=== PATIENT | female | born 1955 | race African-American/Black ===

== ENCOUNTER → 2016-09-28 | Outpatient (CLI) | payer OTHER ==
[~2016-09-28] VITALS: Ht 162.6 cm; Wt 93.4 kg
[~2016-09-28] MED LIST: HYDROCODON-ACE1 EAC5 PO; LIPITOR 20 MG T20 M1 PO; METFORMIN HCL500 MG PO; NORCO 10-325 T1 EACH PO; TENORMIN50 MG PO; TIZANIDINE HCL4 MG PO; TRAMADOL 50 MG50 MG PO; TRAMADOL HCL50 MG PO; ULTRAM 50MG TAB50 MG PO; XANAX 0.25 MG0.25 MG PO; ZESTORETIC 20-1 EACH PO
--- NOTE | ~2016-09-28 | HPC ---
[facility] [address] [place] [address] PAIN MANAGEMENT CONSULTATION Name: SHERRI HANNON Room #: REG VICKI TimElíasJuan Ramon.#: [id number] Admission: 09/28/16 Attend Phys: Anuel Wesley MD Discharge: Date of : 53 Report #: [id number] THIS REPORT FOR: //name// CC: Anuel Ritchie MD DATE OF SERVICE: 09/28/2016 Followup visit for chronic low back pain, radiculopathy and osteoarthritis. The patient returns to the pain clinic today for medication renewal. We have established an opioid agreement to provide medication for her chronic intractable back pain, bilateral hip pain and radiculopathy into the right leg. She continues to report that with medication, her pain is moderate and actively controlled and she is able to function at home. She scores her pain as a 4/10, cramping and aching, mostly in her low back and hips. Pain is worsened with activities, walking, bending, sitting and standing and improved with repositioning, medication and she also has a TENS unit, which she has used intermittently. REVIEW OF SYSTEMS: Also positive for hypertension, noninsulin-dependent diabetes and a history of depression. SOCIAL HISTORY: The patient denies the use of current alcohol or tobacco. She is disabled and is no longer in the work force. PHYSICAL EXAMINATION: GENERAL: She is a pleasant 61-year-old. NEUROLOGIC: Affect is now outgoing and pleasant, without signs of depression or anxiety. VITAL SIGNS: Her blood pressure is 118/74, heart rate is 69. BMI is 35.3. CHEST: Clear. CARDIAC: Rhythm was regular. ABDOMEN: Soft. BACK: Tender to touch and she has some pain with forward flexion and extension. EXTREMITIES: She walks with antalgic features. She has tenderness bilaterally in the hips with internal and external rotation. IMPRESSION: 1. Osteoarthritis, bilateral hips. 2. Low back pain with spondylosis. PLAN: 1. Continue to encourage activity. She was previously working out at the gym at the [facility] on [employer]. [facility] [address] [place] [address] PAIN MANAGEMENT CONSULTATION Name: SHERRI HANNON Room #: REG VICKI Bolanos#: [id number] Admission: 09/28/16 Attend Phys: Anuel Wesley MD Discharge: Date of : 53 Report #: [id number] 2. Long discussion regarding the opioid crisis and the importance of safeguarding all medications under terms of our agreement. 3. Urine drug screen will be reviewed. We are doing this for all patients. 4. Renewal of medicines. 5. Hydrocodone 10/325 one tablet q. 8 hours as needed for pain and tramadol 50 mg 1 tablet 3 times daily for pain at a lesser degree p.r.n. Medication for 90 days was provided and we plan to see her at regular intervals per her opioid agreement. <ELECTRONICALLY SIGNED> By: Anuel Wesley MD 11/04/16 1130 [id number] Anuel Wesley MD /kriss
[2016-09-28 13:15] VITALS: BP 118/74
== END | disposition home or self-care (01) ==
LOC: PAIN 07:31
DX: M47.896 Other spondylosis, lumbar region (principal); G89.29 Other chronic pain; M16.0 Bilateral primary osteoarthritis of hip; I10 Essential (primary) hypertension; E11.9 Type 2 diabetes mellitus without complications; F32.9 Major depressive disorder, single episode, unspecified; Z87.891 Personal history of nicotine dependence

== ENCOUNTER → 2017-01-04 | Outpatient (CLI) | payer OTHER ==
[~2017-01-04] VITALS: Ht 162.6 cm; Wt 90.7 kg
--- NOTE | ~2017-01-04 | HPC ---
[facility] [place] [address] PAIN MANAGEMENT CONSULTATION Name: SHERRI HANNON Room #: REG VICKI Nancy.#: [id number] Admission: 01/04/17 Attend Phys: Anuel Wesley MD Discharge: Date of : 53 Report #: [id number] THIS REPORT FOR: //name// CC: Anuel Ritchie DATE OF SERVICE: 01/04/2017 Follow up visit for management of opioids related to osteoarthritis and low back pain. I spent 15 minutes to 20 minutes today in clinic consulting with the patient regarding chronic pain, depression, stress and medication. She reports that this is a very difficult time for her. Her sister is dying at the age of 86 from cancer. She is with hospice. The patient sees her every day. Although, she has lost other relatives, the sister was like a mother to her, 25 years to her senior. There is some family dynamic issues as well going on, we talked about stress management techniques outside of the use of medication. Her pain has been a bit worse slightly, I am sure some of this triggered by her stress pain; however, with medication 01/01, she is able to perform all her normal activities with walking, bending, sitting and standing with medication more effectively. PHYSICAL EXAMINATION: GENERAL: Her affect is depressed. VITAL SIGNS: Her blood pressure 122/55, heart rate 58, and respirations 34. EXTREMITIES: She moves from a sitting to standing position, ambulates without significant discomfort. She has tenderness across her low back. Straight leg raising is negative. IMPRESSION: 1. Chronic intractable low back pain. 2. Mild situational depression. RECOMMENDATIONS: 1. Counseling regarding stress management and meditative techniques and prayer. 2. Continue with hydrocodone. Consider the addition of antidepressants such as some SSRI, but she is already on tramadol, which has a mild elevating effect for serotonin. I would for right now that we will continue to that. 3. Continue with activities of daily living and exercises discussed. 4. Safeguard all medications terms of the opioid agreement reviewed and CDC guidelines were once again discussed. [facility] [address] [place] [address] PAIN MANAGEMENT CONSULTATION Name: SHERRI HANNON Room #: REG CLSan Francisco Chinese HospitalElías.#: [id number] Admission: 01/04/17 Attend Phys: Anuel Wesley MD Discharge: Date of : 53 Report #: [id number] Follow up visit planned in 3 months. By: [id number] Anuel Wesley MD /nt
[2017-01-04 10:24] VITALS: BP 122/55
== END ==
LOC: PAIN 07:04
DX: M54.5 Low back pain (principal); M19.90 Unspecified osteoarthritis, unspecified site; F43.21 Adjustment disorder with depressed mood; I10 Essential (primary) hypertension; Z87.891 Personal history of nicotine dependence

== ENCOUNTER → 2017-04-02 | Outpatient (CLI) | payer OTHER ==
[~2017-04-02] VITALS: Ht 162.6 cm; Wt 91.6 kg
[2017-04-02 10:35] VITALS: BP 116/62
== END | disposition home or self-care (01) ==
LOC: PAIN 06:41
DX: M54.16 Radiculopathy, lumbar region (principal); Z87.891 Personal history of nicotine dependence

== ENCOUNTER → 2017-07-09 | Outpatient (CLI) | payer OTHER ==
[~2017-07-09] VITALS: Ht 162.6 cm; Wt 92.6 kg
[~2017-07-09] MED LIST changes: -XANAX 0.25 MG0.25 MG PO; +XANAX 0.5 MG0.5 MG PO
--- NOTE | ~2017-07-09 | HPC ---
[facility] [place] [address] PAIN MANAGEMENT CONSULTATION Name: DAMON DE ANDANESSASHERRI Room #: REG Norman Cruz.#: [id number] Admission: 07/09/17 Attend Phys: Anuel Wesley MD Discharge: Date of : 53 Report #: [id number] THIS REPORT FOR: //name// CC: Anuel Ritchie DATE OF SERVICE: 07/09/2017 HISTORY OF PRESENT ILLNESS: Followup visit for management of intractable chronic low back pain with radiculopathy. I am seeing the patient in the pain clinic today and once again, she is dealing with a loss of a relative. This poor woman has lost her sister and her brother this year. She also lost a child over a year ago, so she has been grieving, it seems like the entire time that I have known her. She has ongoing chronic pain, which has rated as a 5/10 at low back, both hips, right leg; it is worse with bending, standing and walking. She is grateful for the pain relief which she gets and she is able to do much more activity day-to-day with the medicine. Without it, she does not feel that she would be able to be nearly as functional. She denies any significant side effects and is careful by safeguarding her medication. CURRENT MEDICINES: Tramadol 50 mg, she is allowed 3 per day. I also gave her hydrocodone because it has a different effect and she has allowed to take 3-4 of those a day and I provided her with 100 tablets per month. Most days, she takes 3. On really bad days, she will take a 4. She also takes metformin, atenolol, lisinopril, atorvastatin, tizanidine, occasional alprazolam during the period of time when she was attending her brother who from pancreatic cancer. She is not taking it now. ALLERGIES: None. She is able to ambulate well without any difficulty other than fall risk. She is taking her opioids under terms of an opioid agreement. We reviewed her agreement. She will be seen every 3 months. Urine drug screens and buccal drug screens have been performed. Prior to initiating opioid therapy in our clinic, an opioid risk tool was performed. She avoids use of any excessive alcohol or other drugs. PHYSICAL EXAMINATION: GENERAL: She is pleasant, soft spoken. VITAL SIGNS: Blood pressure 133/61, heart rate 60. Her BMI is 35. Counseling was given regarding dietary and exercise recommendations for weight loss. [address] [address] PAIN MANAGEMENT CONSULTATION Name: SHERRI HANNON Room #: REG VICKI Luis Miguel#: [id number] Admission: 07/09/17 Attend Phys: Anuel Wesley MD Discharge: Date of : 53 Report #: [id number] MUSCULOSKELETAL: The patient was able to independently move from sitting to standing position. There is a mild antalgic feature to her gait. She has tenderness across the low back and positive straight leg raising. IMPRESSION: 1. Chronic intractable low back pain with radiculopathy. 2. Xnz-tybxxyr-qoukoeqjl diabetes. 3. Hypertension. 4. Situational depression following issues of family loss. 5. Management of high risk medications under terms of an opioid agreement. PLAN: The patient will be followed up in 3 months per terms of our opioid agreement. I reviewed the issues associated with our opioid agreement. By: [id number] Anuel Wesley MD /nt
[2017-07-09 10:27] VITALS: BP 133/61
== END ==
LOC: PAIN 07:07
DX: M54.16 Radiculopathy, lumbar region (principal); I10 Essential (primary) hypertension; E11.9 Type 2 diabetes mellitus without complications; Z79.4 Long term (current) use of insulin

== ENCOUNTER → 2017-10-12 | Outpatient (CLI) | payer OTHER ==
[~2017-10-12] VITALS: Ht 162.6 cm; Wt 93.9 kg
--- NOTE | ~2017-10-12 | HPC ---
[facility] [address] [place] [address] PAIN MANAGEMENT CONSULTATION Name: SHERRI HANNON Room #: REG [facility]ENT[facility].#: [id number] Admission: 10/12/17 Attend Phys: Ankur Long DO Discharge: Date of : 53 Report #: [id number] THIS REPORT FOR: //name// CC: Nina Long HISTORY OF PRESENT ILLNESS: The patient is a 62-year-old female, prior seen in the pain clinic typically by Dr. Anuel Wesley and treated for axial back pain, lumbar radiculopathy, has component of non-insulin dependent diabetes and complicated grief following of family members in 2016 including sister and a brother and having lost a child the year prior. She returns to pain clinic today. She has been stable on her baseline medication. She notes chronic low back, hip and right leg pain since 2006, she rates 8 on VAS. To her credit, she is doing water aerobics about 5 times a week. She notes current medications are enabling activities of daily living. We reviewed the fact that opiate medications are being used to provide analgesia adequate to support activities of daily living, not attempting to achieve a specific pain score on the 0-10 Visual Analog Scale. The current opiate medications are providing sufficient analgesia to allow the patient to participate in activities of daily living. The patient is not exhibiting any aberrant behavior suggestive of drug diversion. The patient is not having any adverse reactions to medications. The patient is not suffering from daytime somnolence or mental acuity changes. The patient is managing opiate-induced constipation with appropriate jhow-dhx-bwdalwa agents and dietary considerations. The patient was counseled on concern for caution with operating a motor vehicle while using opiate medications. A physical exam was performed and the patient's functional status was evaluated. All patients with back pain were advised against the bed rest greater than 4 days and were advised to return to normal activities. Pain score assessment was noted and the treatment plan was reviewed with the patient. All current medications, both prescribed and OTC were reviewed and reconciled on the electronic medical record. Tobacco screening was accomplished and smoking cessation was advised when indicated. BMI was noted and diet/exercise modification was recommended for all patients following outside normal parameters. I reviewed with the patient today their responsibilities to safeguard prescription medications, reviewed their responsibility to utilize medications only as prescribed by the physician. They are to seek and receive pain medications only from 1 physician group ( [facility]). They are to use 1 pharmacy and keep the clinic informed if they change pharmacies. Their responsibilities include making followup visits in a timely fashion and to avoid abrupt discontinuation of medication usage. Their responsibilities further include bringing their medications (bottles from the pharmacy with [address] [address] PAIN MANAGEMENT CONSULTATION Name: SHERRI HANNON Room #: REG VICKI Bolanos#: [id number] Admission: 10/12/17 Attend Phys: Ankur Long DO Discharge: Date of : 53 Report #: [id number] pills) to the visit for possible confirmation of pill counts and the patient understands it is their responsibility to submit to random drug screens to ensure both that the medications prescribed are present, and that no other controlled substances are present. All prescriptions provided today were generated electronically. PHYSICAL EXAMINATION: Shows a 62-year-old female appearing somewhat younger than stated age. BMI is 35.5 kilograms per meter squared. Vital signs are stable. Rises from the chair using armrest. Diffuse tenderness across the low back. Does have tenderness in bilateral SI joints. TERRY test is equivocal. Lower extremity strength is symmetric. Last random drug screen on 01/04/2017 was positive for prescribed medications. ASSESSMENT: 1. Symptomatic lumbar radiculopathy. 2. Axial back pain. 3. History of complicated grief. 4. Non-insulin dependent diabetes. PLAN: Stable on baseline medication including hydrocodone 10/325 one tablet 3-4 times a day, limit 100 tablets for 30 days and tramadol 50 mg up to t.i.d. for minor pain. I have taken the liberty of writing for both medications, quantity sufficient for 3 months. Follow up with Dr. Wesley at that time, earlier if needed. <ELECTRONICALLY SIGNED> By: Ankur Long DO 10/15/17 0816 [id number] [id number] Ankur Long DO /nt
[2017-10-12 10:52] VITALS: BP 130/75
== END ==
LOC: PAIN 06:51
DX: M54.16 Radiculopathy, lumbar region (principal); M54.5 Low back pain; E11.9 Type 2 diabetes mellitus without complications

== ENCOUNTER → 2018-01-10 | Outpatient (CLI) | payer OTHER ==
[~2018-01-10] VITALS: Ht 162.6 cm; Wt 95.3 kg
--- NOTE | ~2018-01-10 | HPC ---
[facility] [address] [place] [address] PAIN MANAGEMENT CONSULTATION Name: SHERRI HANNON Room #: REG VICKI Luis Miguel#: [id number] Admission: 01/10/18 Attend Phys: Anuel Wesley MD Discharge: Date of : 53 Report #: [id number] THIS REPORT FOR: //name// CC: Anuel Hong DATE OF SERVICE: 01/10/2018 Followup visit for management of chronic low back pain with radiculopathy. The patient returns to pain clinic today in followup. She has been seen at 3-month intervals, last seen by my partner, Dr. Long in September. She is receiving medication under terms of written opioid agreement. She uses a combination of hydrocodone and tramadol to get through her day. She is doing reasonably well. She does score her pain high at an 8/10, but her functional level is pretty good. She is able to perform multiple daily activities of living. She has in the past been doing water exercises as noted in Dr. Long's record. She has been doing that less frequently. We have performed urine drug screens and most recent one on 01/04/2017 appropriate for medications ordered. Periodic random drug screens will be performed or if we suspect any unusual behavior with early refills or other red flag behaviors. We have had none. She has scoring 32/70 on functional assessment tool. Her risk assessment tool shows her at low risk at 3. She has an opioid agreement signed on 01/05/2016. She is not a fall risk nor has she fallen. PHYSICAL EXAMINATION: Blood pressure is 126/71, heart rate 68, respirations 16. BMI is 36. She is able to ambulate without too much difficulty. She has diffuse tenderness across her low back. There is tenderness bilaterally in the sacroiliac joints. She has tenderness, more so today in the left hip overlying the greater trochanter consistent with bursitis. She has mild pain with internal and external rotation. Pain is worsened by prolonged walking. IMPRESSION: 1. Chronic low back pain with radiculopathy. 2. Spondylosis. 3. Trochanteric bursitis presents today on exam, left hip. 4. Non-insulin dependent diabetes. 5. Management of high risk medications under terms of an opioid agreement. I spent 20-25 minutes today with the patient, which was spent in assessment and evaluation and education. We reviewed her opioid use and her MME currently calculated at 30 per day maximum. She uses tram[place] [address] PAIN MANAGEMENT CONSULTATION Name: SHERRI HANNON Room #: REG CLNorman Bolanos#: [id number] Admission: 01/10/18 Attend Phys: Anuel Wesley MD Discharge: Date of : 53 Report #: [id number] hydrocodone. She does not have significant side effects. PLAN: I renewed her hydrocodone 10 at a total of 100 tablets per month. On a bad day, I have allowed her to take an extra tablet. She can use tramadol as well 1 tablet 3 times daily. A followup visit is scheduled for her in the pain clinic in 3 months. By: [id number] Anuel Wesley MD /nt
[2018-01-10 10:08] VITALS: BP 126/71
== END ==
LOC: PAIN 07:00
DX: M47.26 Other spondylosis with radiculopathy, lumbar region (principal); M70.62 Trochanteric bursitis, left hip; E11.9 Type 2 diabetes mellitus without complications; F11.90 Opioid use, unspecified, uncomplicated; Y93.89 Activity, other specified

== ENCOUNTER → 2018-04-08 | Outpatient (CLI) | payer OTHER ==
[~2018-04-08] VITALS: Ht 162.6 cm; Wt 93.8 kg
--- NOTE | ~2018-04-08 | HPC ---
[facility] [place] [address] PAIN MANAGEMENT CONSULTATION Name: SHERRI HANNON Room #: REG NAIMANorman Bolanos#: [id number] Admission: 04/08/18 Attend Phys: Anuel Wesley MD Discharge: Date of : 53 Report #: [id number] THIS REPORT FOR: //name// CC: Anuel Hong MD DATE OF SERVICE: 04/08/2018 Followup visit for chronic low back pain with radiculopathy. The patient returns to the pain clinic today for followup on the management of medication for chronic pain. She has lumbar spondylosis. X-rays have shown that she has a slight convexity in her lumbar spine with degenerative changes noted with the intervertebral disks. She also has anterior osteophytes and disk space narrowing. The degenerative changes are fairly typical; however, her back pain at times can be quite severe and at times incapacitating. We have been able to help manage that pain effectively with modest doses of opioid medication taken under the terms of our written agreement. She has been a patient of our practice now dating back to 2015. Today, she reports without medication pain intensity is as high as an 8. This affects her ability to take care of her great grandchildren. She is 62 and has 8 of them! 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 Without medication, it is much more difficult for her to do this. We have talked about using the medications at the end of a long day and we also talked about using it in anticipation of events. If, for example, she is taking her children to the zoo, she might want to take a pain medication in advance. We have talked about using it carefully and matching her pain to her medicine, using the lowest effective dose. She is provided with 100 hydrocodone tablets per month. On a bad day, she may take up to 4; on a good day, two, but 100 seems to be the lowest level at this point in time that we have been able to manage. That equates out to about an MME of 33. This puts her in the lower category of the CDC guideline. Most of her pain is across her low back. She does on occasion have some radiating leg pain and we have treated at times for radiculopathy. I have not given her an epidural injection. We have talked about that as a possibility as a symptom management tool as well. Remaining active is important of course and with those great grandchildren, I think she is getting plenty of weightbearing activities. PQRS shows that her BMI is 35.5. We discussed diet management and weight loss. [address] [address] PAIN MANAGEMENT CONSULTATION Name: DAMON DE ANDAPKINSKHUSHBUSHERRI Room #: REG VICKI Bolanos#: [id number] Admission: 04/08/18 Attend Phys: Anuel Wesley MD Discharge: Date of : 53 Report #: [id number] She is not a fall risk and has not fallen. She is hypertensive and under treatment by her primary physician, Dr. Hong, who has also started Lipitor. She is on an opioid agreement, has completed a functional assessment tool and all risks tool and is considered to be a low risk. She is a former smoker. Denies use of alcohol. Drug testing was performed in 2017 and we will repeat that at her next visit. PHYSICAL EXAMINATION: Today, she is pleasant, alert and oriented. She shows no signs of depression, anxiety or overmedication. Her blood pressure is 123/68, heart rate 70. BMI is 35.5. She has no difficulty moving from a sitting to standing position and ambulates without difficulty, although she complains that her pain increases to an 8/10 during her walking. She has some pain with forward flexion and extension, with a minimal radiating pain today. IMPRESSION: 1. Chronic low back pain with radiculopathy. 2. Spondylosis. 3. Non-insulin dependent diabetes. 4. Management of high-risk medications under terms of an opioid agreement. PLAN: I have renewed her hydrocodone 10/325 at 100 tablets per month, tramadol 50 mg 3 times a day. Importance of safeguarding medication, particularly around small children was reviewed today. By: [id number] Anuel Wesley MD /nt
[2018-04-08 10:44] VITALS: BP 123/68
== END ==
LOC: PAIN 08:36
DX: M47.26 Other spondylosis with radiculopathy, lumbar region (principal); E11.9 Type 2 diabetes mellitus without complications; G89.29 Other chronic pain; Z79.891 Long term (current) use of opiate analgesic

== ENCOUNTER → 2018-07-11 | Outpatient (CLI) | payer OTHER ==
[~2018-07-11] VITALS: Ht 162.6 cm; Wt 94.4 kg
--- NOTE | ~2018-07-11 | HPC ---
[facility] [place] [address] PAIN MANAGEMENT CONSULTATION Name: SHERRI HANNON Room #: REG NAIMANorman Bolanos#: [id number] Admission: 07/11/18 Attend Phys: Anuel Wesley MD Discharge: Date of : 53 Report #: [id number] THIS REPORT FOR: //name// CC: Anuel Hong MD DATE OF SERVICE: 07/11/2018 REASON FOR VISIT: Followup visit for management of chronic intractable pain. HISTORY OF PRESENT ILLNESS: The patient presents back to the pain clinic today for renewal of medication. She is on 45 MME if we include tramadol at 15 MME per day. She takes hydrocodone 10/325 four times daily. She reports that with medication she has significant improvement in her low back. She has chronic low back pain with radiculopathy. She has not responded favorably to injections. Her pain is primarily in the right leg radiating in the L5-S1 distribution. She is living alone. In 2017, she lost a sister, a brother, and a child. She continues to grieve, although we did not discuss any of that today. She has become socially isolated. We talked about opportunities for her perhaps to reach out to find other in buddhist or through volunteer work. She has a number of great grandchildren and can babysit. She has reported that in the past, but did not discuss it today. I talked about using the medication carefully under terms of our agreement. She must carefully safeguard all medication at all times. I have checked on the [facility] PDMP and there have been no other providers. She follows with Dr. Nina Ritchie. She reports to us today that her pain is 8/10. Pain is mostly in the low back. Her blood pressure is 123/68, heart rate 70. Her BMI is 35.5. We talked about wellness behaviors. She does not smoke nor does she drink alcohol. She scores 3 on the opioid risk tool and is at low risk for addiction. She has signed an opioid agreement. Her functional assessment tool is 35/70. She denies any history of osteoarthritis or complaints in joins at this time. PHYSICAL EXAMINATION: She is a pleasant. It appears there may be some underlying situational depression with the loss of her family members. Her blood pressure and vital signs are as noted before. She moves from sitting to standing position, walks with mild antalgic features. She has some tenderness across the low back and some straight leg raising pain on the right. IMPRESSION: 1. Low back pain with radiculopathy on the right. [address] [address] PAIN MANAGEMENT CONSULTATION Name: DAMON SHERRI SY Room #: REG VICKI Cruz.#: [id number] Admission: 07/11/18 Attend Phys: Anuel Wesley MD Discharge: Date of : 53 Report #: [id number] 2. Management of high risk medications under 50 morphine milligram equivalents under terms of written opioid agreement. 3. Situational depression and social isolation. PLAN: Follow up in 3 months. She was referred to programs also that are available for free within [facility]. By: [id number] Anuel Wesley MD /nt
[2018-07-11 14:43] VITALS: BP 125/64
== END ==
LOC: PAIN 07:13
DX: M54.16 Radiculopathy, lumbar region (principal); F43.21 Adjustment disorder with depressed mood; Z79.899 Other long term (current) drug therapy; Z79.891 Long term (current) use of opiate analgesic

== ENCOUNTER → 2018-10-10 | Outpatient (CLI) | payer OTHER ==
[~2018-10-10] VITALS: Ht 162.6 cm; Wt 92.5 kg
--- NOTE | ~2018-10-10 | HPC ---
[facility] [place] [address] PAIN MANAGEMENT CONSULTATION Name: DAMON DE ANDANESSASHERRI Room #: REG VICKI Bolanos#: [id number] Admission: 10/10/18 Attend Phys: Anuel Wesley MD Discharge: Date of : 53 Report #: [id number] THIS REPORT FOR: //name// CC: Anuel Hong DATE OF SERVICE: 10/10/2018 Followup visit for chronic low back pain, bilateral lower extremity pain with radiculopathy. The patient returns to pain clinic today for medication renewal. I have her taking alternately either tramadol or hydrocodone for her ongoing severe back pain. Her use is modest. The hydrocodone is not taken more often than every 8 hours and the maximum number of tablets in a day is 3. Her MME is 30. She has tramadol, which she uses alternately and medication typically last a bit longer than 3 months for her. She is here exactly at the 3-month interval today. She says that with medication, her activities of daily living are much improved. She is able to stand, walk, bend much more effectively with less discomfort. It seems to help her move more, which is the bedoya. It helps also with anxiety. She has some hypertension and pain seems to exacerbate her hypertension as well. Other comorbidities include non-insulin dependent diabetes and a history of depression. She seems fairly stable recently and denies significant depression at this time. All medications reviewed and reconciled. She does have alprazolam on her list of medications. The alprazolam is taken intermittently for anxiety. She lost a son a few years back. He was murdered and she continues to have recurring symptoms of depression and anxiety for which the alprazolam provides substantial benefit. We have discussed the opioid benzodiazepine interaction. I did let her know that the majority of overdose tests are associated with high doses of both medications. She should be careful about her use and has shown good tolerance to these medications without complication. She was counseled to discontinue tobacco use and has done so. She no longer smokes. She does, however, use alcohol socially. She was cautioned about the interaction of the pain medications and alcohol. PHYSICAL EXAMINATION: She is a noemy 63-year-old pleasant, alert and oriented with no signs of depression or anxiety today. Her blood pressure 141/80, heart rate 62. Her BMI is 35. She has some pain across her low back, mild straight leg raising bilaterally. Sensation is following an L5 distribution. IMPRESSION: Chronic low back pain with radiculopathy. I have offered her injections, but she had a bad experience with an injection in the past and does [facility] [address] [place] [address] PAIN MANAGEMENT CONSULTATION Name: SHERRI HANNON Room #: REG VICKI Bolanos#: [id number] Admission: 10/10/18 Attend Phys: Anuel Wesley MD Discharge: Date of : 53 Report #: [id number] not really want another injection. I have reviewed her x-rays and she has disk space narrowing at L3-L4 and L4-L5. I do not have a current MRI. PLAN: I am willing to provide her medications under terms of written agreement, which she will continue to follow carefully keeping her medications locked and away from others. I will see her at 3-month intervals as long as there are no unusual behaviors. I have checked for any prescribing abnormalities and there are none on the prescription drug monitoring program from [facility]. By: [id number] Anuel Wesley MD /nt
[2018-10-10 11:08] VITALS: BP 141/80
--- NOTE | 2018-10-10 11:29 | NUR ---
Pain Clinic Assessment: 1. History of Osteoarthritis: fingers back History of Rheumatoid Arthritis: Not Applicable 2. Height: 5 ft. 4 in. 162.6 cm. Weight: 204.0 lb. oz. 92.534 kg. Patient's BMI: 35.0 3. Vital Signs: BP: 141/80 Pulse: 62 Resp: 16 Temp: 02 Sat: 100 ECG Mon: 4. Pain Intensity: 5-6 5. Fall Risk: Dizziness: N Needs help standing or walking: N Fallen in the last 3 months: N Fall risk comments: 6. Patient on Blood Thinner: None 7. History of Hypertension: Y 8. Opioid Therapy greater than 6 weeks: Y Opiate Contract Signed: 01/05/16 9. Risk Assessment Tool Provided: LOW RISK 3 10. Functional Assessment Tool: 11. Recreational Drug Use: Past greater than 3 mos Drug Type: Tobacco Use: Former Smoker Tobacco Type: Cigarettes Amount or Packs/day: 1/2/ppd How Many Years: 30 Alcohol Use: Yes Frequency: Weekly Quant: 6/week
== END ==
LOC: PAIN 06:58
DX: M48.061 Spinal stenosis, lumbar region without neurogenic claudication (principal); M54.5 Low back pain; G89.29 Other chronic pain

== ENCOUNTER → 2019-01-09 | Outpatient (CLI) | payer OTHER ==
[~2019-01-09] VITALS: Ht 162.6 cm; Wt 91.4 kg
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
[2019-01-09 10:22] VITALS: BP 125/75
--- NOTE | 2019-01-09 10:45 | NUR ---
ALERT - Dane Score <= 18: Add Problem PRESSURE ULCER RISK to Patient's Care Plan
--- NOTE | 2019-01-09 10:45 | NUR ---
Pain Clinic Assessment: 1. History of Osteoarthritis: fingers back History of Rheumatoid Arthritis: Not Applicable 2. Height: 5 ft. 4 in. 162.6 cm. Weight: 201.4 lb. oz. 91.355 kg. Patient's BMI: 34.6 3. Vital Signs: BP: 125/75 Pulse: 64 Resp: 16 Temp: 02 Sat: 100 ECG Mon: 4. Pain Intensity: 4-5 5. Fall Risk: Dizziness: N Needs help standing or walking: N Fallen in the last 3 months: N Fall risk comments: 6. Patient on Blood Thinner: None 7. History of Hypertension: Y 8. Opioid Therapy greater than 6 weeks: Y Opiate Contract Signed: 01/05/16 9. Risk Assessment Tool Provided: LOW RISK 3 10. Functional Assessment Tool: 11. Recreational Drug Use: Past greater than 3 mos Drug Type: Tobacco Use: Former Smoker Tobacco Type: Amount or Packs/day: How Many Years: Alcohol Use: Yes Frequency: Quant:
== END ==
LOC: PAIN 06:47
DX: M54.16 Radiculopathy, lumbar region (principal); M19.90 Unspecified osteoarthritis, unspecified site; Z79.891 Long term (current) use of opiate analgesic; Z79.899 Other long term (current) drug therapy

== ENCOUNTER → 2019-04-10 | Outpatient (CLI) | payer OTHER ==
[~2019-04-10] VITALS: Ht 162.6 cm; Wt 91.1 kg
[2019-04-10 10:47] VITALS: BP 109/62
--- NOTE | 2019-04-10 11:09 | NUR ---
Pain Clinic Assessment: 1. History of Osteoarthritis: fingers back History of Rheumatoid Arthritis: Not Applicable 2. Height: 5 ft. 4 in. 162.6 cm. Weight: 200.8 lb. oz. 91.082 kg. Patient's BMI: 34.5 3. Vital Signs: BP: 109/62 Pulse: 62 Resp: 14 Temp: 02 Sat: 100 ECG Mon: 4. Pain Intensity: 5 5. Fall Risk: Dizziness: N Needs help standing or walking: N Fallen in the last 3 months: N Fall risk comments: 6. Patient on Blood Thinner: None 7. History of Hypertension: Y 8. Opioid Therapy greater than 6 weeks: Y Opiate Contract Signed: 01/05/16 9. Risk Assessment Tool Provided: LOW RISK 3 10. Functional Assessment Tool: 11. Recreational Drug Use: Past greater than 3 mos Drug Type: Tobacco Use: Former Smoker Tobacco Type: Amount or Packs/day: How Many Years: Alcohol Use: Yes Frequency: Quant:
--- NOTE | 2019-04-11 08:08 | HPC ---
[facility] [address] [place] [address] PAIN MANAGEMENT CONSULTATION Name: DAMON DE ANDANESSASHERRI Room #: REG [facility] M.R.#: [id number] Admission: 04/10/19 ������������������ Attend Phys: Karla Pérez Discharge: ������������������ Date of : 53 Report #: [id number] THIS REPORT FOR: //name// CC: Karla Pérez Nina Tenishatyrel DATE OF SERVICE: 04/10/2019 CHIEF COMPLAINT: Chronic intractable pain with low back and bilateral lower extremity pain with radiculopathy. HISTORY OF PRESENT ILLNESS: This is a very pleasant 63-year-old female who returns to the pain clinic today for a refill of her medications that she uses to help treat her ongoing low back pain and lumbar radiculopathy. She tells me that her pain score is a 5/10 today. This was a very average pain score for her. She continues to work out on a daily basis. She knows that is very beneficial, it does help her feel better, especially water therapy, though it does cause increased pain while she is working out. Her pain is aching, sharp, shooting pain that is located in her lumbar back and both hips and right leg. The medication and repositioning are very helpful. She denies any problems with constipation presently. ALLERGIES: No known drug allergies. CURRENT LIST OF MEDICATIONS: Tramadol 50 mg every 8 hours p.r.n., hydrocodone 10/325 two to three times a day, atorvastatin 20 mg daily, Xanax 0.5 mg p.r.n., tizanidine 4 mg p.r.n., lisinopril, atenolol and Glucophage. PQRS: 1. She has osteoarthritis changes in her hands and back. Denies any rheumatoid arthritis. 2. Height is 5 feet 4 inches, weight is 200, BMI is 34. 3. VITAL SIGNS: Blood pressure 109/62, pulse is 62, respirations 14, oxygen sat is 100. 4. Pain score is 5/10. 5. Denies dizziness. She does not need help walking or standing and has not fallen in the last 3 months. 6. The patient is not on any blood thinners, but does take medicine for hypertension. 7. Opioid therapy is greater than 6 weeks; therefore, an opiate signed contract is on the chart. Her risk assessment tool is low. Functional assessment is 40/70. 8. Recreational drug use in the past. She is a former smoker and occasionally drinks alcohol. PHYSICAL EXAMINATION: [facility] [address] [place] [address] PAIN MANAGEMENT CONSULTATION Name: SHERRI HANNON [id number] Admission: 04/10/19 ������������������ Attend Phys: Karla Pérez Discharge: ������������������ Date of : 53 Report #: [id number] GENERAL: This is a very pleasant 63-year-old female who appears her stated age, placing her current pain score today at 5/10. HEENT: Normocephalic, atraumatic. Extraocular eye muscles are intact. Mucous membranes are moist. MUSCULOSKELETAL: She can move from sitting to standing without difficulty. She has a mild antalgic gait. She has tenderness across her lumbar spine with pain with forward flexion and extension. Straight leg raising reproduces some radicular symptoms bilaterally. Her lower extremity strength judged to be 5/5 and is symmetrical in tone and strength. IMPRESSION: 1. Chronic low back pain with radiculopathy. 2. Chronic use of medications under terms of written opioid agreement. 3. Osteoarthritis. We reviewed the fact that opiate medications are being used to provide analgesia adequate to support activities of daily living, not attempting to achieve a specific pain score on the 0-10 Visual Analog Scale. The current opiate medications are providing sufficient analgesia to allow the patient to participate in activities of daily living. The patient is not exhibiting any aberrant behavior suggestive of drug diversion. The patient is not having any adverse reactions to medications. The patient is not suffering from daytime somnolence or mental acuity changes. The patient is managing opiate-induced constipation with appropriate tsdm-dgt-hqlomsf agents and dietary considerations. The patient was counseled on concern for caution with operating a motor vehicle while using opiate medications. A physical exam was performed and the patient's functional status was evaluated. All patients with back pain were advised against the bed rest greater than 4 days and were advised to return to normal activities. Pain score assessment was noted and the treatment plan was reviewed with the patient. All current medications, both prescribed and OTC were reviewed and reconciled on the electronic medical record. Tobacco screening was accomplished and smoking cessation was advised when indicated. BMI was noted and diet/exercise modification was recommended for all patients following outside normal parameters. I reviewed with the patient today their responsibilities to safeguard prescription medications, reviewed their responsibility to utilize medications only as prescribed by the physician. They are to seek and receive pain medications only from 1 physician group ([facility]). They are to use 1 pharmacy and keep the clinic informed if they change pharmacies. Their responsibilities include making followup visits in a timely fashion and to avoid abrupt discontinuation of medication usage. Their responsibilities further include bringing their medications (bottles from the pharmacy with residual pills) to the visit for possible confirmation of pill counts and the patient [address] [address] PAIN MANAGEMENT CONSULTATION Name: SHERRI HANNON Room #: [facility] [id number] Admission: 04/10/19 ������������������ Attend Phys: Karla Pérez Discharge: ������������������ Date of : 53 Report #: [id number] understands it is their responsibility to submit to random drug screens to ensure both that the medications prescribed are present, and that no other controlled substances are present. All prescriptions provided today were generated electronically. PLAN: 1. We discussed treatment options with the patient today. The patient finds her pain medications very helpful and is very active with these current medications. Scripts given for hydrocodone 10/325, #100, for today, for an 8-week release and tramadol 50 mg #90 with 2 additional ref[address]. [address] the patient at 35 morphine milligram equivalents according to the CDC guidelines. 2. We did talk about random drug screens. We will check the patient in the future for this and the opioid use and misuse in the general population and the importance of safeguarding her medications at all times. 3. We did briefly also talk about medical marijuana that is becoming legal in the state of [place] as well as CBD oil options. The patient was more interested in learning more about it. She is not interested in trying it though. 4. The patient did see Dr. Anuel Wesley who collaborated care today and saw the patient as well. ��������������������������������������������� <ELECTRONICALLY SIGNED> ���������������������������������������� By: Karla Pérez ��������������������������������������������� 04/11/19 0808 [id number] Karla Pérez /kriss
== END ==
LOC: PAIN 10:16
DX: M54.16 Radiculopathy, lumbar region (principal); M19.90 Unspecified osteoarthritis, unspecified site; Z79.891 Long term (current) use of opiate analgesic

== ENCOUNTER → 2019-07-07 | Outpatient (CLI) | payer OTHER ==
[~2019-07-07] VITALS: Ht 162.6 cm; Wt 90.7 kg
[2019-07-07 09:58] VITALS: BP 113/72
--- NOTE | 2019-07-07 10:12 | NUR ---
Pain Clinic Assessment: 1. History of Osteoarthritis: fingers back History of Rheumatoid Arthritis: Not Applicable 2. Height: 5 ft. 4 in. 162.6 cm. Weight: 200.0 lb. oz. 90.720 kg. Patient's BMI: 34.3 3. Vital Signs: BP: 113/72 Pulse: 62 Resp: 16 Temp: 02 Sat: 98 ECG Mon: 4. Pain Intensity: 4-NOW, 6-7-DAILY AVG 5. Fall Risk: Dizziness: N Needs help standing or walking: N Fallen in the last 3 months: N Fall risk comments: 6. Patient on Blood Thinner: None 7. History of Hypertension: Y 8. Opioid Therapy greater than 6 weeks: Y Opiate Contract Signed: 01/05/16 9. Risk Assessment Tool Provided: LOW RISK 3 10. Functional Assessment Tool: 11. Recreational Drug Use: Never Drug Type: Tobacco Use: Former Smoker Tobacco Type: Amount or Packs/day: How Many Years: Alcohol Use: Yes Frequency: Quant:
--- NOTE | 2019-07-08 13:30 | HPC ---
[facility] [place] [address] PAIN MANAGEMENT CONSULTATION Name: DAMON DE ANDAPKINSSHERRI Room #: REG [facility] Nancy.#: [id number] Admission: 07/07/19 Attend Phys: Karla Pérez Discharge: Date of : 53 Report #: [id number] THIS REPORT FOR: //name// CC: Karla Pérez Nina Tenishatyrel DATE OF SERVICE: 07/07/2019 CHIEF COMPLAINT: Chronic intractable pain with low back and bilateral lower extremity pain with radiculopathy. HISTORY OF PRESENT ILLNESS: This is a very pleasant 63-year-old female who returns to the pain clinic today for refill of her medications that she uses to help treat her ongoing low back pain and right leg pain. She reports a pain score 4/10 today. It is an aching, sharp, shooting pain that is worse with activity and walking. She finds her medications very beneficial. She recently purchased a TENS unit and she finds that helpful as well. She is here today accompanied with 3 great grandchildren and she tells me they have been keeping her very active today, so her pain is slightly elevated. ALLERGIES: No known drug allergies. CURRENT LIST OF MEDICATIONS: Tramadol 50 mg q. 8 hours, hydrocodone 10/325 p.r.n., atorvastatin 40 mg daily, Xanax 0.5 mg p.r.n., tizanidine 4 mg t.i.d. p.r.n., Zestoretic 20/12.5 daily, Tenormin 50 mg daily, metformin 50 mg b.i.d. PQRS: 1. She has osteoarthritic changes in her hands and her back. She denies any rheumatoid arthritis. 2. Height is 5 feet 4 inches, weight is 200, BMI is 34. 3. Vital signs: 113/72, pulse is 62, respirations 16, oxygen sat is 98. 4. Pain score is 4/10. 5. Denies dizziness, does not need help walking or standing, has not fallen in the last 3 months. 6. The patient is not on any blood thinners, but does take medicine for hypertension. 7. Opioid therapy is greater than 6 weeks; therefore, an opioid signed contract is on the chart. Risk assessment tool is low. Functional assessment is 40/70. 8. Recreational drug use, she denies. She is a former smoker and occasionally drinks alcohol. According to the prescription monitoring system, the patient is filling appropriately for her medications from Dr. Anuel Wesley. We will check a random drug screen on this patient today and that it has been greater than a year since her last drug screen. [address] [address] PAIN MANAGEMENT CONSULTATION Name: DAMON SHERRI SY Room #: REG VICKI Bolanos#: [id number] Admission: 07/07/19 Attend Phys: Karla Pérez Discharge: Date of : 53 Report #: [id number] PHYSICAL EXAMINATION: GENERAL: This is a very pleasant 63-year-old female who appears her stated age, placing her current pain score at 4/10 today. HEENT: Normocephalic, atraumatic. Extraocular eye muscles are intact. Mucous membranes are moist. MUSCULOSKELETAL: She has tenderness across her lumbar spine that radiates into her right leg today. Straight leg raising produces some radicular symptoms bilaterally, worse on the right. Lower extremity strength judged to be 5/5 is symmetrical in tone and strength. She can move from sitting to standing without difficulty and has a mild antalgic gait. IMPRESSION: 1. Chronic low back pain with radiculopathy. 2. Osteoarthritis. 3. Chronic use of medications under terms of written opioid agreement. We reviewed the fact that opiate medications are being used to provide analgesia adequate to support activities of daily living, not attempting to achieve a specific pain score on the 0-10 Visual Analog Scale. The current opiate medications are providing sufficient analgesia to allow the patient to participate in activities of daily living. The patient is not exhibiting any aberrant behavior suggestive of drug diversion. The patient is not having any adverse reactions to medications. The patient is not suffering from daytime somnolence or mental acuity changes. The patient is managing opiate-induced constipation with appropriate dadn-lwv-gnxouid agents and dietary considerations. The patient was counseled on concern for caution with operating a motor vehicle while using opiate medications. A physical exam was performed and the patient's functional status was evaluated. All patients with back pain were advised against the bed rest greater than 4 days and were advised to return to normal activities. Pain score assessment was noted and the treatment plan was reviewed with the patient. All current medications, both prescribed and OTC were reviewed and reconciled on the electronic medical record. Tobacco screening was accomplished and smoking cessation was advised when indicated. BMI was noted and diet/exercise modification was recommended for all patients following outside normal parameters. I reviewed with the patient today their responsibilities to safeguard prescription medications, reviewed their responsibility to utilize medications only as prescribed by the physician. They are to seek and receive pain medications only from 1 physician group ([facility]). They are to use 1 pharmacy and keep the clinic informed if they change pharmacies. Their responsibilities include making followup visits in a timely fashion and to avoid abrupt discontinuation of medication usage. Their responsibilities further include bringing their medications (bottles from the pharmacy with residual [address] [address] PAIN MANAGEMENT CONSULTATION Name: SHERRI HANNON Room #: REG [facility].#: [id number] Admission: 07/07/19 Attend Phys: Karla Pérez Discharge: Date of : 53 Report #: [id number] pills) to the visit for possible confirmation of pill counts and the patient understands it is their responsibility to submit to random drug screens to ensure both that the medications prescribed are present, and that no other controlled substances are present. All prescriptions provided today were generated electronically. PLAN: 1. We discussed treatment options with the patient today. The patient finds the medications very beneficial in helping reduce her pain and allowing her to keep as active as possible in fact caring for 3 great grandchildren today. Script given for tramadol 50 mg q. 8 #90 with 2 additional refills and hydrocodone 10/325 #100 for today, 4-week and 8-week release. 2. The patient did give us a urine specimen for random drug screen today. 3. The patient tells me that Dr. Ritchie will be starting to rewrite for her prescriptions, she had written for these in the past. The patient will not longer need to come here for her opioid medications. 4. The patient is seen under the collaboration with Dr. Anuel Wesley today. <ELECTRONICALLY SIGNED> By: Karla Pérez 07/08/19 1330 [id number] Karla Pérez /kriss
== END ==
LOC: PAIN 07:18
DX: M54.16 Radiculopathy, lumbar region (principal); M19.90 Unspecified osteoarthritis, unspecified site; Z79.899 Other long term (current) drug therapy; Z79.891 Long term (current) use of opiate analgesic

== ENCOUNTER → 2020-01-12 | Outpatient (CLI) | payer OTHER, MEDICARE ==
[~2020-01-12] VITALS: Ht 162.6 cm; Wt 95.3 kg
[~2020-01-12] MED LIST changes: +NEURONTIN 300M300 M2 PO
[2020-01-12 13:26] VITALS: BP 121/78
--- NOTE | 2020-01-12 13:50 | NUR ---
Pain Clinic Assessment: 1. History of Osteoarthritis: fingers back History of Rheumatoid Arthritis: Not Applicable 2. Height: 5 ft. 4 in. 162.6 cm. Weight: 210.0 lb. oz. 95.256 kg. Patient's BMI: 36.0 3. Vital Signs: BP: 121/78 Pulse: 76 Resp: 16 Temp: 02 Sat: 97 ECG Mon: 4. Pain Intensity: 7-8 5. Fall Risk: Dizziness: N Needs help standing or walking: N Fallen in the last 3 months: N Fall risk comments: 6. Patient on Blood Thinner: None 7. History of Hypertension: Y 8. Opioid Therapy greater than 6 weeks: Y Opiate Contract Signed: 01/05/16 9. Risk Assessment Tool Provided: LOW RISK 3 10. Functional Assessment Tool: 11. Recreational Drug Use: Never Drug Type: Tobacco Use: Former Smoker Tobacco Type: Amount or Packs/day: How Many Years: Alcohol Use: Yes Frequency: Quant:
--- NOTE | 2020-01-13 11:10 | HPC ---
[facility] [address] [place] [address] PAIN MANAGEMENT CONSULTATION Name: SHERRI HANNON Room #: REG VICKI Luis Miguel#: [id number] Admission: 01/12/20 Attend Phys: Karla Pérez Discharge: Date of : 53 Report #: [id number] THIS REPORT FOR: cc: Nina Ritchie MD, Stephanie M. MD Hocker, Amanda CNS ~ CC: Anuel Wesley MD DATE OF SERVICE: 01/12/2020 CHIEF COMPLAINT: Chronic intractable pain with low back and bilateral lower extremity pain with radiculopathy. HISTORY OF PRESENT ILLNESS: This is a 64-year-old female who returns to our pain clinic after seeing Dr. Ritchie since June for her opioid medications. The patient states today she would like to return to Dr. Wesley for her medications because Dr. Ritchie is only prescribing her hydrocodone medication. She feels that the hydrocodone, tramadol combination was much more effective in controlling her pain. She recently discovered that she does not need to pay a copay to the hospital for each visit; therefore, she is able to afford to come to our clinic once again for pain management. Today, the patient reports low back pain that radiates into her right leg, not past her knee. It is an aching, sharp pain, but not numb and tingly. Her overall pain score is a 7-8, worse with activity and walking and prolonged standing. She has recently started working at [employer], which has increased her pain. 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 The patient reports that the medications as well as a TENS unit and repositioning are beneficial, though she feels that the old regimen she was on for her pain management was more beneficial than her current regimen. She denies any problems with constipation or daytime sleepiness as a result of her medications. She does report that Dr. Ritchie started her on gabapentin, she is unsure of the current dose but she believes it to be 600 mg 3 times a day. She has not noticed any improvement in her pain symptoms since starting this medicine. ALLERGIES: No known drug allergies. CURRENT LIST OF MEDICATIONS: Gabapentin 600 mg t.i.d., hydrocodone 10/325 p.r.n., atorvastatin, alprazolam p.r.n., tizanidine, lisinopril, atenolol, and metformin. PQRS: 1. She has arthritic changes in her back and hands. She denies any rheumatoid arthritis. 2. Height is 5 feet 4 inches, weight is 210 and BMI [place] 36[place] [address] PAIN MANAGEMENT CONSULTATION Name: SHERRI HANNON Room #: REG VICKI Bolanos#: [id number] Admission: 01/12/20 Attend Phys: Karla Pérez Discharge: Date of : 53 Report #: [id number] 3. Vital signs: 121/78, pulse is 76, respirations 16, oxygen sat is 97%. 4. Pain score is 7-8. 5. Denies dizziness, does not need help standing or walking, has not fallen in the last 3 months. 6. The patient is not on any blood thinners, but does take medicine for hypertension. Her opioid therapy is greater than 6 weeks; therefore, an opioid signed contract will be placed in her chart. Risk assessment tool is low. Functional assessment is 40/70. 7. Recreational drug use, she denies. She is not a smoker and occasionally drinks alcohol. According to the prescription monitoring system, the patient has been filling her medications since September from Dr. Ritchie in a timely fashion. Her morphine milligram equivalent is 30 MME per day. We did obtain a urine drug specimen prior to her last visit, which was appropriate for her medicines. PHYSICAL EXAMINATION: GENERAL: This is a very pleasant 64-year-old female who is alert and orientated. She appears her stated age, placing her current pain score today at 7-8. HEENT: Normocephalic, atraumatic. Extraocular eye muscles are intact. Mucous membranes are moist. MUSCULOSKELETAL: She has tenderness that radiates from her lumbar spine down her right leg to her knee. Straight leg raising does produce an increase in pain. She moves from sitting to standing without any difficulty. She has a slightly antalgic gait. Her lower extremity strength judged to be 5/5 in all major muscle groups. She denies any numbness and tingling in her lower extremities. IMPRESSION: 1. Chronic low back pain with radiculopathy. 2. Osteoarthritis. 3. Chronic use of opioid medications under terms of written agreement. We reviewed the fact that opiate medications are being used to provide analgesia adequate to support activities of daily living, not attempting to achieve a specific pain score on the 0-10 Visual Analog Scale. The current opiate medications are providing sufficient analgesia to allow the patient to participate in activities of daily living. The patient is not exhibiting any aberrant behavior suggestive of drug diversion. The patient is not having any adverse reactions to medications. The patient is not suffering from daytime somnolence or mental acuity changes. The patient is managing opiate-induced constipation with appropriate usma-nfp-ednqphu agents and dietary considerations. The patient was counseled on concern for caution with operating a motor vehicle while using opiate medications. [facility] [address] [place] [address] PAIN MANAGEMENT CONSULTATION Name: SHERRI HANNON Room #: REG CL M.Juan Ramon.#: [id number] Admission: 01/12/20 Attend Phys: Karla RUDOLPH Claymeaghan Discharge: Date of : 53 Report #: [id number] A physical exam was performed and the patient's functional status was evaluated. All patients with back pain were advised against the bed rest greater than 4 days and were advised to return to normal activities. Pain score assessment was noted and the treatment plan was reviewed with the patient. All current medications, both prescribed and OTC were reviewed and reconciled on the electronic medical record. Tobacco screening was accomplished and smoking cessation was advised when indicated. BMI was noted and diet/exercise modification was recommended for all patients following outside normal parameters. I reviewed with the patient today their responsibilities to safeguard prescription medications, reviewed their responsibility to utilize medications only as prescribed by the physician. They are to seek and receive pain medications only from 1 physician group ( [facility]). They are to use 1 pharmacy and keep the clinic informed if they change pharmacies. Their responsibilities include making followup visits in a timely fashion and to avoid abrupt discontinuation of medication usage. Their responsibilities further include bringing their medications (bottles from the pharmacy with residual pills) to the visit for possible confirmation of pill counts and the patient understands it is their responsibility to submit to random drug screens to ensure both that the medications prescribed are present, and that no other controlled substances are present. All prescriptions provided today were generated electronically. PLAN: 1. We discussed treatment options with the patient today. The patient would like to return to her previous pain regimen that was beneficial in controlling most of her low back pain and lumbar radiculopathy. Perusal of our last dictations, it seems her pain was generally at a 4 level on her previous regimen. It is not elevated to a constant level of 7-8/10. After discussion with Dr. Anuel Wesley, we will return her to hydrocodone 10/325 three to four tablets a day giving her quantity of 100 and tramadol 50 mg #90 with 2 additional refills allowing her up to 3 times a day. The patient has in her possession currently [address] Ritchie, so we will not start her hydrocodone from our clinic until 1 month from now. 2. We discussed that she is on gabapentin. The patient is unsure of the dose, but seems that she is on 600 mg 3 times a day. The patient is not having any numbness, tingling or burning in her lower extremities. She does not feel that this medication has been beneficial in reducing any of her pain. We encouraged her to decrease it slowly dropping 1 pill every other day until she is off. If her pain does return, then we will discuss restarting it in the future. 3. The patient reminded to safeguard her meds at all times and that she will no longer be getting any opioid medications from Dr. Ritchie since she has returned to our office. The patient verbalized understanding. [address] [address] PAIN MANAGEMENT CONSULTATION Name: SHERRI HANNON Room #: REG VICKI Bolanos#: [id number] Admission: 01/12/20 Attend Phys: Karla Pérez Discharge: Date of : 53 Report #: [id number] 4. The patient is seen in collaboration with Dr. Anuel Wesley who did see her as well today. <ELECTRONICALLY SIGNED> By: Karla Pérez 01/13/20 1110 [id number] Karla Pérez /kriss
== END ==
LOC: PAIN 06:53
DX: M54.5 Low back pain (principal); G89.29 Other chronic pain; M79.604 Pain in right leg; M79.605 Pain in left leg; M19.90 Unspecified osteoarthritis, unspecified site; M54.10 Radiculopathy, site unspecified; F11.20 Opioid dependence, uncomplicated; Z79.84 Long term (current) use of oral hypoglycemic drugs; Z79.899 Other long term (current) drug therapy

== ENCOUNTER → 2020-03-11 | Outpatient (CLI) | payer OTHER, MEDICARE ==
[~2020-03-11] VITALS: Ht 162.6 cm; Wt 93.8 kg
[2020-03-11 08:54] VITALS: BP 121/68
--- NOTE | 2020-03-11 09:01 | NUR ---
Pain Clinic Assessment: 1. History of Osteoarthritis: fingers back History of Rheumatoid Arthritis: Not Applicable 2. Height: 5 ft. 4 in. 162.6 cm. Weight: 206.8 lb. oz. 93.804 kg. Patient's BMI: 35.5 3. Vital Signs: BP: 121/68 Pulse: 76 Resp: 18 Temp: 02 Sat: 98 ECG Mon: 4. Pain Intensity: 7 5. Fall Risk: Dizziness: N Needs help standing or walking: N Fallen in the last 3 months: N Fall risk comments: 6. Patient on Blood Thinner: None 7. History of Hypertension: Y 8. Opioid Therapy greater than 6 weeks: Y Opiate Contract Signed: 01/05/16 9. Risk Assessment Tool Provided: LOW RISK 3 10. Functional Assessment Tool: 11. Recreational Drug Use: Never Drug Type: Tobacco Use: Former Smoker Tobacco Type: Amount or Packs/day: How Many Years: Alcohol Use: Yes Frequency: Quant:
--- NOTE | 2020-03-12 08:54 | HPC ---
[facility] [place] [address] PAIN MANAGEMENT CONSULTATION Name: SHERRI HANNON Room #: REG VICKI Cruz.#: [id number] Admission: 03/11/20 Attend Phys: Karla Pérez Discharge: Date of : 53 Report #: [id number] THIS REPORT FOR: cc: Nina Ritchie MD, Stephanie M. MD Hocker, Amanda CNS ~ CC: Karla Wesley MD DATE OF SERVICE: 03/11/2020 CHIEF COMPLAINT: Chronic intractable pain in low back and bilateral lower extremity pain with radiculopathy. HISTORY OF PRESENT ILLNESS: This is a 64-year-old female who returns to the pain clinic today to discuss her pain medications. She is reporting a pain score of 7/10. Her pain is located in her low back that radiates into her hips and down her right leg. It is an aching, sharp, shooting pain, worse with activity and walking. She has been working part-time at [employer]. She feels that has increased her pain since she is more active. Some days, she is requiring 4 hydrocodone a day as well as her tramadol that she takes. Patient is here today since she is out of her hydrocodone pills. At our last visit with the patient we discussed decreasing her gabapentin she was unsure if it was effective in reducing her pain. I had instructed her to restart it if her pain returned. The patient has not done this. Instead she has taken extra hydrocodone. She is stating she would like 4 pills a day of her hydrocodone. ALLERGIES: No known drug allergies. CURRENT LIST OF MEDICATIONS: Tramadol 50 mg t.i.d., hydrocodone 10/325 p.r.n., atorvastatin, Xanax, lisinopril, Tenormin, and Glucophage. PQRS: 1. She has arthritic changes in her back and hands. Denies any rheumatoid arthritis. 2. Height is 5 feet 4 inches, weight is 206, BMI is 35. 3. Vital signs 121/68, pulse is 76, respirations 18, oxygen sat is 98. 4. Pain score is 7/10. 5. Denies dizziness, does not need help walking or standing, has not fallen in the last 3 months. 6. The patient is not on any blood thinners, but does take medicine for hypertension. 7. Opioid therapy is greater than 6 weeks; therefore, an opioid signed contract is on the chart. Risk assessment tool is low. Functional assessment is 40/70[place] [address] PAIN MANAGEMENT CONSULTATION Name: SHERRI HANNON Room #: REG [facility] Nancy.#: [id number] Admission: 03/11/20 Attend Phys: Karla Pérez Discharge: Date of : 53 Report #: [id number] 8. Recreational drug use, she denies. She is a former smoker and occasionally drinks alcohol. According to the prescription monitoring system, the patient is due to fill her hydrocodone today and due in a few days for her tramadol. We did call her [facility]. According to our records, she should still have 1 hydrocodone left on file. They are reporting that is not the case, but she has not filled it according to the prescription monitoring system either. So today, she is needing both of her medications. According to the CDC guidelines, her morphine milliequivalent is 55 MMEs per day. PHYSICAL EXAMINATION: GENERAL: This is a well-developed, well-nourished, well-hydrated 64-year-old female who is alert and orientated, placing her current pain score at 7/10. HEENT: Normocephalic, atraumatic. Extraocular eye muscles are intact. She is wearing a mask. MUSCULOSKELETAL: She has pain that radiates from her lumbar spine down her right leg to her knee. This does follow her L3-L4, L4-L5 dermatomal distribution. Straight leg raising increases her pain. She moves from sitting to standing without difficulty. She has a slightly antalgic gait. Her lower extremity strength judged to be 5/5 in all major muscle groups. IMPRESSION: 1. Chronic low back pain with radiculopathy. 2. Osteoarthritis. 3. Chronic use of opioid medications under terms of written opioid agreement. We reviewed the fact that opiate medications are being used to provide analgesia adequate to support activities of daily living, not attempting to achieve a specific pain score on the 0-10 Visual Analog Scale. The current opiate medications are providing sufficient analgesia to allow the patient to participate in activities of daily living. The patient is not exhibiting any aberrant behavior suggestive of drug diversion. The patient is not having any adverse reactions to medications. The patient is not suffering from daytime somnolence or mental acuity changes. The patient is managing opiate-induced constipation with appropriate [id number]-yrs-[id number] agents and dietary considerations. The patient was counseled on concern for caution with operating a motor vehicle while using opiate medications. A physical exam was performed and the patient's functional status was evaluated. All patients with back pain were advised against the bed rest greater than 4 days and were advised to return to normal activities. Pain score assessment was noted and the treatment plan was reviewed with the patient. All current medications, both prescribed and OTC were reviewed and reconciled on the electronic medical record. Tobacco screening was accomplished and smoking cessation was advised when indicated. BMI was noted and diet/exercise [facility] [address] [place] [address] PAIN MANAGEMENT CONSULTATION Name: SHERRI HANNON Room #: REG [facility]..#: [id number] Admission: 03/11/20 Attend Phys: Karla RUDOLPH Beto Discharge: Date of : 53 Report #: [id number] modification was recommended for all patients following outside normal parameters. I reviewed with the patient today their responsibilities to safeguard prescription medications, reviewed their responsibility to utilize medications only as prescribed by the physician. They are to seek and receive pain medications only from 1 physician group ( [facility]). They are to use 1 pharmacy and keep the clinic informed if they change pharmacies. Their responsibilities include making followup visits in a timely fashion and to avoid abrupt discontinuation of medication usage. Their responsibilities further include bringing their medications (bottles from the pharmacy with residual pills) to the visit for possible confirmation of pill counts and the patient understands it is their responsibility to submit to random drug screens to ensure both that the medications prescribed are present, and that no other controlled substances are present. All prescriptions provided today were generated electronically. PLAN: 1. We discussed treatment options with the patient today. I reiterated to the patient that she is allowed 100 pills of her hydrocodone in a month, not 4 tablets every day. She is allowed to have 3 every day and on more painful days or working days, she may take a fourth pill. She also has her tramadol that she is able to take 3 times a day. We will not be increasing her opioid medications. Currently, she is at 55 MMEs, according to the CDC guidelines. She needs to find other ways such as relaxation and distraction techniques instead of taking an extra pill every day. The patient verbalizes understanding. We also discussed that if her pain returns, she is to continue her gabapentin, which the patient has not done. She did wean off her gabapentin and has not restarted it despite the increase in pain. 2. Today, we instructed her to restart her gabapentin one at bedtime. Continue this for 1 week. If her pain has not decreased then she is instructed to take 1 in the morning and 1 at night. Continue her hydrocodone and tramadol as prescribed. The patient verbalizes understanding. Scripts will be sent today to the pharmacy for gabapentin 300 mg b.i.d., #60 with 2 refills, hydrocodone 10/325, #100 for today for an 8-week supply and tramadol 50 mg #90 with 2 additional refills. 3. The patient will return in 3 months. The patient is seen today in collaboration with Dr. Anuel Wesley. <ELECTRONICALLY SIGNED> By: Karla Pérez 03/12/20 0854 [id number] Karla Pérez /kriss
== END ==
LOC: PAIN 07:54
PROVIDERS: ATTEND Clinical Nurse Specialist Adult Health
DX: M54.16 Radiculopathy, lumbar region (principal); M19.90 Unspecified osteoarthritis, unspecified site; F11.20 Opioid dependence, uncomplicated; Z79.899 Other long term (current) drug therapy

== ENCOUNTER → 2020-06-07 | Outpatient (CLI) | payer OTHER, MEDICARE ==
[~2020-06-07] VITALS: Ht 162.6 cm; Wt 95.9 kg
[2020-06-07 08:02] VITALS: BP 129/81
--- NOTE | 2020-06-07 08:09 | NUR ---
Pain Clinic Assessment: 1. History of Osteoarthritis: fingers back History of Rheumatoid Arthritis: Not Applicable 2. Height: 5 ft. 4 in. 162.6 cm. Weight: 211.4 lb. oz. 95.891 kg. Patient's BMI: 36.3 3. Vital Signs: BP: 129/81 Pulse: 59 Resp: 18 Temp: 02 Sat: 99 ECG Mon: 4. Pain Intensity: 4-5 5. Fall Risk: Dizziness: N Needs help standing or walking: N Fallen in the last 3 months: N Fall risk comments: 6. Patient on Blood Thinner: None 7. History of Hypertension: Y 8. Opioid Therapy greater than 6 weeks: Y Opiate Contract Signed: 01/05/16 9. Risk Assessment Tool Provided: LOW RISK 3 10. Functional Assessment Tool: 11. Recreational Drug Use: Never Drug Type: Tobacco Use: Former Smoker Tobacco Type: Amount or Packs/day: How Many Years: Alcohol Use: Yes Frequency: Quant:
--- NOTE | 2020-06-08 07:54 | HPC ---
[facility] [place] [address] PAIN MANAGEMENT CONSULTATION Name: SHERRI HANNON Room #: REG VICKI Cruz.#: [id number] Admission: 06/07/20 Attend Phys: Karla Pérez Discharge: Date of : 53 Report #: [id number] THIS REPORT FOR: cc: Nina Ritchie MD, Stephanie M. MD Hocker, Amanda CNS ~ CC: Karla Wesley MD DATE OF SERVICE: 06/07/2020 CHIEF COMPLAINT: Chronic intractable pain and low back pain, bilateral lower extremity pain with paresthesias. HISTORY OF PRESENT ILLNESS: This is a pleasant 64-year-old female who returns to the pain clinic today for refill of her opioid medications. Today, she reports increased pain, rating her pain at 4/5 in her lower back and especially her right leg. She has had tendinitis in her right foot and ankle and has been in a walking boot for several weeks. She reports she needs to wear it for additional 5 weeks. It has been altering her gait. She has found shoes that have a higher heel to wear on her left and this has helped some. She does work at [employer] and they have allowed her to sit during her working hours, but she is still required to walk back and forth on breaks and to clock in and she finds this problematic. Her pain is an aching, sharp, shooting pain, but her medications are beneficial. She denies problems with constipation as long as she takes an occasional yznc-tdu-kkshobu laxative. She has been using Voltaren gel to her lower extremity as well today. ALLERGIES: No known drug allergies. CURRENT LIST OF MEDICATIONS: Gabapentin 300 mg at bedtime, tramadol 50 mg t.i.d., hydrocodone 10/325 p.r.n., turmeric, atorvastatin, alprazolam, Zestoretic, atenolol, and Glucophage. PQRS: 1. She has osteoarthritis in her back and fingers. Denies any rheumatoid arthritis. 2. Height is 5 feet 4 inches, weight is 211, BMI is 36. 3. Vital signs 129/81, pulse is 59, respirations 18, oxygen sat is 99. 4. Pain score is 4-5. 5. Denies dizziness, does not need help walking or standing, has not fallen in the last 3 months. 6. The patient is not on any blood thinners. She does have a history of hypertension. 7. Opioid therapy is greater than 6 weeks; therefore, an opioid signed contract is on the chart. Risk assessment is low. Functional assessment is 40/70. [place] [address] PAIN MANAGEMENT CONSULTATION Name: SHERRI HANNON Room #: REG CLNorman Bolanos#: [id number] Admission: 06/07/20 Attend Phys: Karla Pérez Discharge: Date of : 53 Report #: [id number] 8. Recreational drug use, she denies. She is a former smoker and does drink alcohol. According to the prescription monitoring system, the patient is due to fill her medications next week, filling them in a timely fashion. Her morphine milliequivalent according to the CDC is 48. There is a recent drug screen on the chart. PHYSICAL EXAMINATION: GENERAL: This is alert and orientated 64-year-old female who appears her stated age, placing her current pain score at 4-5. She is a good historian. HEENT: Normocephalic, atraumatic. Extraocular eye muscles are intact. She is wearing a mask. MUSCULOSKELETAL: She walks with an antalgic gait. She has a boot on her right lower extremity. Complains of sharp, tender feeling, did not assess for swelling, though patient reports it does have some edema. She has pain in her lumbar spine that radiates down the L3-L4, L4-L5 dermatomal distribution. Straight leg raising does increase her pain. Pain with ambulation. Her lower extremity strength judged to be 5/5 in all major muscle groups. IMPRESSION: 1. Chronic low back pain with radiculopathy. 2. Osteoarthritis. 3. Recent tendinitis of her right lower extremity. 4. Chronic opioid medications under terms of written opioid agreement. We reviewed the fact that opiate medications are being used to provide analgesia adequate to support activities of daily living, not attempting to achieve a specific pain score on the 0-10 Visual Analog Scale. The current opiate medications are providing sufficient analgesia to allow the patient to participate in activities of daily living. The patient is not exhibiting any aberrant behavior suggestive of drug diversion. The patient is not having any adverse reactions to medications. The patient is not suffering from daytime somnolence or mental acuity changes. The patient is managing opiate-induced constipation with appropriate ysnm-zfg-erneleq agents and dietary considerations. The patient was counseled on concern for caution with operating a motor vehicle while using opiate medications. A physical exam was performed and the patient's functional status was evaluated. All patients with back pain were advised against the bed rest greater than 4 days and were advised to return to normal activities. Pain score assessment was noted and the treatment plan was reviewed with the patient. All current medications, both prescribed and OTC were reviewed and reconciled on the electronic medical record. Tobacco screening was accomplished and smoking cessation was advised when indicated. BMI was noted and diet/exercise modification was recommended for all patients following outside normal [facility] [address] [place] [address] PAIN MANAGEMENT CONSULTATION Name: SHERRI HANNON Room #: REG Norman Tim.Juan Ramon.#: [id number] Admission: 06/07/20 Attend Phys: Karla RUDOLPH Beto Discharge: Date of : 53 Report #: [id number] parameters. I reviewed with the patient today their responsibilities to safeguard prescription medications, reviewed their responsibility to utilize medications only as prescribed by the physician. They are to seek and receive pain medications only from 1 physician group ( [facility]). They are to use 1 pharmacy and keep the clinic informed if they change pharmacies. Their responsibilities include making followup visits in a timely fashion and to avoid abrupt discontinuation of medication usage. Their responsibilities further include bringing their medications (bottles from the pharmacy with residual pills) to the visit for possible confirmation of pill counts and the patient understands it is their responsibility to submit to random drug screens to ensure both that the medications prescribed are present, and that no other controlled substances are present. All prescriptions provided today were generated electronically. PLAN: 1. We discussed treatment options with the patient today. The patient finds her medications beneficial, though has been having increased pain due to her tendinitis. She has been using Voltaren gel multiple times a day. I encouraged her to try Aleve in the morning and at night to see if this is beneficial as long as she does not have any GI side effects. The patient verbalizes understanding. She may discuss with her primary care doctor at her visit this , about a Medrol Dosepak, which they had offered in the past. We did discuss possible rise in her blood sugar and to monitor those if she takes the Medrol Dosepak. 2. We will have Dr. Anuel Wesley send her hydrocodone 10/325, #100 for today, 4 and 8-week release as well as her tramadol 50 mg t.i.d., #90, with 2 additional refills. 3. I will send her gabapentin 300 mg b.i.d., #60 with one additional refill. 4. We will check a random drug screen on the patient at her next visit. The patient is seen today in collaboration with Dr. Anuel Wesley. <ELECTRONICALLY SIGNED> By: Karla Pérez 06/08/20 [id number] Karla Pérez /nt
== END ==
LOC: PAIN 06:52
PROVIDERS: ATTEND Clinical Nurse Specialist Adult Health
DX: M54.16 Radiculopathy, lumbar region (principal); G89.29 Other chronic pain; M79.604 Pain in right leg; M79.605 Pain in left leg; R20.2 Paresthesia of skin; M19.90 Unspecified osteoarthritis, unspecified site; M76.71 Peroneal tendinitis, right leg; F11.20 Opioid dependence, uncomplicated; Z79.899 Other long term (current) drug therapy

== ENCOUNTER → 2020-09-09 | Outpatient (CLI) | payer OTHER, MEDICARE ==
[~2020-09-09] VITALS: Ht 162.6 cm; Wt 94.2 kg
[~2020-09-09] MED LIST changes: +TIZANIDINE HCL4 M1 PO; +WARFARIN SODIUM5 MG PO
[2020-09-09 10:12] VITALS: BP 128/72
--- NOTE | 2020-09-09 10:30 | NUR ---
Pain Clinic Assessment: 1. History of Osteoarthritis: fingers back History of Rheumatoid Arthritis: Not Applicable 2. Height: 5 ft. 4 in. 162.6 cm. Weight: 207.6 lb. oz. 94.167 kg. Patient's BMI: 35.6 3. Vital Signs: BP: 128/72 Pulse: 69 Resp: 16 Temp: 02 Sat: 98 ECG Mon: 4. Pain Intensity: 5 5. Fall Risk: Dizziness: N Needs help standing or walking: N Fallen in the last 3 months: N Fall risk comments: 6. Patient on Blood Thinner: None 7. History of Hypertension: Y 8. Opioid Therapy greater than 6 weeks: Y Opiate Contract Signed: 01/05/16 9. Risk Assessment Tool Provided: LOW RISK 3 10. Functional Assessment Tool: 11. Recreational Drug Use: Never Drug Type: Tobacco Use: Former Smoker Tobacco Type: Amount or Packs/day: How Many Years: Alcohol Use: Yes Frequency: Weekly Quant: 4
--- NOTE | 2020-09-10 07:33 | HPC ---
[facility] [place] [address] PAIN MANAGEMENT CONSULTATION Name: SHERRI HANNON Room #: REG VICKI Bolanos#: [id number] Admission: 09/09/20 Attend Phys: Karla Pérez Discharge: Date of : 53 Report #: [id number] THIS REPORT FOR: cc: Nina Ritchie MD, Stephanie M. MD Hocker, Amanda CNS ~ DATE OF SERVICE: 09/09/2020 CC: Dr Anuel Wesley MD CHIEF COMPLAINT: Chronic intractable pain and low back pain, bilateral lower extremity pain and paresthesias. HISTORY OF PRESENT ILLNESS: This is a very pleasant 64-year-old female who returns to the pain clinic today for renewal of her opioid medications. Today, she is reporting a pain score of 5/10, most significantly in her low back and right leg, though she does often have ongoing hip pain. She believes it is worse when she is standing for prolonged periods of time as walking. She does continue to work several days at [employer]. This does increase her pain. Today, she is rating her pain score of 5/10, is an aching, sharp, shooting pain. She finds her tramadol and hydrocodone beneficial in controlling her pain and reports that she does take gabapentin only as needed and is not needing a prescription refill of that medication today. The patient reports that she is now taking Coumadin. She was having some shortness of breath and went to the Emergency Room. They did test her for COVID, which she was negative. They found that she did have a small blood clot in her lower left lobe. She spent the night in the hospital for continued evaluation. Per her report, she had no further blood clots and will be on Coumadin for a short period of time. ALLERGIES: No known drug allergies. CURRENT LIST OF MEDICATIONS: Tizanidine 4 mg p.r.n., warfarin 5 mg daily, tramadol 50 mg t.i.d. p.r.n., hydrocodone 10/325 p.r.n., gabapentin p.r.n., Lipitor, alprazolam, lisinopril, atenolol, and metformin. PQRS: The patient is filling appropriately for her medications. She is due to fill them in the next few days. Her morphine mEq is 45 MME or below. We will check a random drug screen on this patient today. PHYSICAL EXAMINATION: GENERAL: This is alert and orientated, well-developed, well-nourished 64-year-old female who appears her stated age, placing her current pain score at 5/10. She is a good historian. HEENT: Normocephalic, atraumatic. Extraocular eye muscles are intact. [place] [address] PAIN MANAGEMENT CONSULTATION Name: SHERRI HANNON Room #: REG VICKI Bolanos#: [id number] Admission: 09/09/20 Attend Phys: Karla Pérez Discharge: Date of : 53 Report #: [id number] LUNGS: No shortness of breath noted. Lungs are clear to auscultation. MUSCULOSKELETAL: She has an antalgic gait. Pain radiates in her lumbar spine down her right leg to her knee following the L3-L4 dermatomal distribution. Straight leg raising is positive. Her lower extremity strength is symmetrical at 5/5. IMPRESSION: 1. Chronic low back pain with radiculopathy. 2. Osteoarthritis. 3. Chronic use of opioids under written opioid management. 4. Pulmonary embolism, on anticoagulation therapy. We reviewed the fact that opiate medications are being used to provide analgesia adequate to support activities of daily living, not attempting to achieve a specific pain score on the 0-10 Visual Analog Scale. The current opiate medications are providing sufficient analgesia to allow the patient to participate in activities of daily living. The patient is not exhibiting any aberrant behavior suggestive of drug diversion. The patient is not having any adverse reactions to medications. The patient is not suffering from daytime somnolence or mental acuity changes. The patient is managing opiate-induced constipation with appropriate rjrz-bhj-ipmmgns agents and dietary considerations. The patient was counseled on concern for caution with operating a motor vehicle while using opiate medications. A physical exam was performed and the patient's functional status was evaluated. All patients with back pain were advised against the bed rest greater than 4 days and were advised to return to normal activities. Pain score assessment was noted and the treatment plan was reviewed with the patient. All current medications, both prescribed and OTC were reviewed and reconciled on the electronic medical record. Tobacco screening was accomplished and smoking cessation was advised when indicated. BMI was noted and diet/exercise modification was recommended for all patients following outside normal parameters. I reviewed with the patient today their responsibilities to safeguard prescription medications, reviewed their responsibility to utilize medications only as prescribed by the physician. They are to seek and receive pain medications only from 1 physician group ([facility]). They are to use 1 pharmacy and keep the clinic informed if they change pharmacies. Their responsibilities include making followup visits in a timely fashion and to avoid abrupt discontinuation of medication usage. Their responsibilities further include bringing their medications (bottles from the pharmacy with residual pills) to the visit for possible confirmation of pill counts and the patient understands it is their responsibility to submit to random drug screens to ensure both that the medications prescribed are present, and that no other controlled substances are present. All prescriptions provided today were [facility] [address] [place] [address] PAIN MANAGEMENT CONSULTATION Name: SHERRI HANNON Room #: REG [facility]..#: [id number] Admission: 09/09/20 Attend Phys: Karla Pérez Discharge: Date of : 53 Report #: [id number] generated electronically. PLAN: 1. We discussed treatment options with the patient today. The patient finds her medications of hydrocodone and tramadol beneficial, would like to continue those. We will have Dr. Wesley send these electronically for 3 months. 2. The patient states she is not needing gabapentin refilled. She does take this very p.r.n. I encouraged her to take this in the evening or at bedtime when she does have increasing pain, though reminding her of the side effects of this medication. 3. The patient has restarted tizanidine to take for occasional muscle spasms, though she does have occasional side effect of sleepiness. She is going to discuss with Dr. Ritchie resuming Skelaxin if it is on her formulary. If Dr. Ritchie will not prescribe this, we may call this medication in for her if she finds it is on her formulary and is inexpensive for her. 4. The patient will return in 3 months. At that time, she will follow up with Dr. Anuel Wesley. A urine drug specimen was sent today. <ELECTRONICALLY SIGNED> By: Karla Pérez 09/10/20 [id number] [id number] Karla Pérez /kriss
== END ==
LOC: PAIN 06:50
PROVIDERS: ATTEND Clinical Nurse Specialist Adult Health
DX: M54.16 Radiculopathy, lumbar region (principal); G89.29 Other chronic pain; M19.90 Unspecified osteoarthritis, unspecified site; I26.99 Other pulmonary embolism without acute cor pulmonale; Z79.891 Long term (current) use of opiate analgesic; Z79.899 Other long term (current) drug therapy; Z79.01 Long term (current) use of anticoagulants